=== PATIENT | female | born 1975 | race Caucasian/White ===

== ENCOUNTER 2016-07-30 07:19 | Emergency (ER) | payer OTHER ==
--- NOTE | 2016-07-30 07:22 | PDOC ---
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 Timing/Duration: other (3 days) Severity: mild Modifying Factors: improves with: other (nothing makes it worse or better) Associated Symptoms: reports: chest pain, cough, fever/chills Past History - Past Medical History Allergies/Adverse Reactions: Allergies Allergy/AdvReac Type Severity Reaction Status Date / Time No Known Allergies Allergy Verified 07/30/16 07:21 Home Medications: Ambulatory Orders Ibuprofen 800 mg PO TID #30 tablet 07/30/16 - Psycho/Social/Smoking Cessation Hx Anxiety: No Suicidal Ideation: No Smoking Status: No Smoking History: Never smoked Number of Cigarettes Smoked Daily: 0 Hx Alcohol Use: No Drug/Substance Use Hx: No Substance Use Type: None Review of Systems - Review of Systems Able to Perform ROS?: Yes Constitutional: Yes: See HPI HEENTM: Yes: See HPI Respiratory: Yes: Cough Cardiac (ROS): No: Symptoms Reported ABD/GI: No: Symptoms Reported : No: Symptoms Reported Musculoskeletal: Yes: Other (My whole body aches) Integumentary: No: Symptoms Reported Neurological: No: Symptoms reported Psychiatric: No: Anxiety, Depression Endocrine: No: Symptoms Reported Hematologic/Lymphatic: No: Symptoms Reported All Other Systems: Reviewed and Negative *Physical Exam - Physical Exam General Appearance: Yes: Nourished. No: Apparent Distress HEENT: positive: Normal Voice, TMs Normal, Pharynx Normal, Nasal Congestion. negative: Sinus Tenderness Neck: positive: Trachea midline, Supple. negative: Tender, Lymphadenopathy (R) , Lymphadenopathy (L) Respiratory/Chest: positive: Lungs Clear, Normal Breath Sounds. negative: Respiratory Distress Cardiovascular: positive: Regular Rhythm, Regular Rate. negative: Murmur Gastrointestinal/Abdominal: positive: Normal Bowel Sounds, Flat, Soft. negative : Tender, Organomegaly Rectal Exam: positive: deferred Lymphatic: negative: Adenopathy Musculoskeletal: positive: Normal Inspection Extremity: positive: Normal Inspection. negative: Cyanosis Integumentary: positive: Normal Color, Dry, Warm Neurologic: positive: courtroom deputy II-XII NML intact, Fully Oriented, Alert, Normal Mood/ Affect *DC/Admit/Observation/Transfer Diagnosis at time of Disposition: Viral syndrome - Discharge Dispostion Disposition: HOME Condition at time of disposition: Good Admit: No - Prescriptions Prescriptions: Ibuprofen 800 mg PO TID #30 tablet - Referrals Referrals: Gabriel Escobar MD [Primary Care Provider] - - Patient Instructions Printed Discharge Instructions: DI for Viral Pharyngitis Additional Instructions: Argenis - I am sorry that you are not feeling well right now. Rest, Plenty of fluids, Motrin for fever and bodyaches. Returtn to us if worse or problems. See your doctor next week. Jose Carlos- Dr. Miles Curry
[2016-07-30 07:25] VITALS: BP 118/78; PULSE 82; TEMP 99.8; BMI 21.9
== END 2016-07-30 07:52 | disposition home or self-care (01) ==
LOC: FER 07:19
DX: B34.9 Viral infection, unspecified (principal)
CPT/HCPCS: 99281-25

== ENCOUNTER 2017-12-11 15:40 | Emergency (ER) | payer OTHER ==
--- NOTE | 2017-12-11 17:01 | PDOC ---
Attending Attestation - Resident Resident Name: Gina Adams - ED Attending Attestation I have performed the following: I have examined & evaluated the patient, The case was reviewed & discussed with the resident, I agree w/resident's findings & plan, Exceptions are as noted
[2017-12-11] MEDS ORDERED: SODIUM CHLORIDE 1,000 ML IV STA (17:27)
[2017-12-11] MEDS ORDERED: ONDANSETRON 4 MG/2 ML VIAL IVPB ONE (17:28)
[2017-12-11] MEDS ORDERED: KETOROLAC TROMETHAMINE 30 MG/1 ML VIAL IVPUSH ONE (17:28)
--- NOTE | 2017-12-11 17:34 | PDOC ---
History of Present Illness - General Chief Complaint: Vomiting/Diarrhea Stated Complaint: N/V/D Time Seen by Provider: 12/11/17 17:26 - History of Present Illness Initial Comments: 12/11/17 17:28 Chief complaint: Nausea vomiting abdominal pain History of present illness: Complains of mid abdominal pain and diarrhea since Monday. Today with multiple episodes of vomiting. The emesis is watery without blood. The diarrhea is watery, brown to green in color, and also without blood. The pain is described as crampy, suprapubic in location but radiating to the entire left and right abdomen. Review of systems: No fever/chills, vaginal bleeding or discharge, urinary tract symptoms including dysuria, frequency, urgency, hesitancy, hematuria, URI symptoms, sore throat, cough, chest pain, shortness of breath, visual or focal neurologic symptoms, unsteadiness of gait. Remainder systems reviewed and found to be negative Past medical history: Patient denies any significant illnesses in the past, denies surgery, denies taking any medication on a regular basis. She has had children via normal spontaneous vaginal delivery. She is postmenopausal with her last menstrual period in May of this year. Specifically, she denies cardiac disease, pulmonary disease, abdominal disease of any kind, or prior surgery. 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 No tobacco alcohol or nonprescription drugs Family history: Reviewed and noncontributory Physical exam: Alert oriented well-developed well-nourished moderate distress due to abdominal pain. However, cooperative Afebrile, vital signs normal No pallor or icterus. PERRLA, fundi benign, ENT clear. Mucous membranes mildly dry Neck supple without bruit mass or nodes Lungs clear with full breath sounds bilaterally, no wheezes rales or rhonchi CV S1 and S2 normal without murmur rub or gallop pulses full and symmetric no JVD or edema no bruits Abdomen nondistended. Bowel sounds active. Soft without mass or organomegaly. There is mild to moderate tenderness most localized over the suprapubic area but also present in both lower quadrants. There is minimal epigastric, right upper quadrant, or left upper quadrant tenderness. No CVAT Extremities no CCE Skin clear, no rash, adequate turgor. Impression: Abdominal pain, nausea, vomiting, diarrhea for 3 days. No peritoneal signs. Remainder differential is gastroenteritis versus pelvic/OUTSIDE SALES ENGINEER disease. Mild dehydration. Plan: CBC, chemistries, lipase, and urinalysis. IV hydration and pain control. Further evaluation depending on results. Past History - Past Medical History Allergies/Adverse Reactions: Allergies Allergy/AdvReac Type Severity Reaction Status Date / Time No Known Allergies Allergy Verified 07/30/16 07:21 Home Medications: Ambulatory Orders Loperamide HCl [Imodium -] 2 mg PO Q2H PRN #14 capsule 12/11/17 Ondansetron [Zofran Odt -] 4 - 8 mg SL TID PRN #10 od.tablet 12/11/17 - Suicide/Smoking/Psychosocial Hx Smoking Status: No Smoking History: Never smoked Number of Cigarettes Smoked Daily: 0 Hx Alcohol Use: No Drug/Substance Use Hx: No Substance Use Type: None ED Treatment Course - LABORATORY CBC & Chemistry Diagram: 12/11/17 18:00 12/11/17 18:00 Medical Decision Making - Medical Decision Making 12/11/17 18:53 CBC, chemistries, and lipase without significant abnormalities. Urinalysis with white blood cells but negative for nitrites and leukocyte esterase. Doubt if this is a UTI, but culture is pending and should be checked as directed Most likely viral gastroenteritis that is much improved. Patient is hungry, tolerating by mouth fluids, and pain has completely resolved. *DC/Admit/Observation/Transfer Diagnosis at time of Disposition: Viral gastroenteritis - Discharge Dispostion Disposition: HOME Condition at time of disposition: Improved Decision to Admit order: No - Prescriptions Prescriptions: Loperamide HCl [Imodium -] 2 mg PO Q2H PRN #14 capsule PRN Reason: Diarrhea Ondansetron [Zofran Odt -] 4 - 8 mg SL TID PRN #10 od.tablet PRN Reason: Nausea And/Or Vomiting - Referrals - Patient Instructions Printed Discharge Instructions: DI for Viral Gastroenteritis -- Adult Additional Instructions: Try to drink fluids. No solid food for another 12 hours at least or until symptoms are improved. Check your urine culture in 48 hours to determine whether or not you may have a urinary tract infection - Post Discharge Activity Forms/Work/School Notes: Back to Work
[2017-12-11 17:44] VITALS: BP 101/60; BMI 21.7
[2017-12-11 17:46] VITALS: PULSE 71; TEMP 98.5
[2017-12-11] MEDS ORDERED: KETOROLAC TROMETHAMINE 30 MG/1 ML VIAL ONE (17:48)
[2017-12-11] MEDS ORDERED: ONDANSETRON 4 MG/2 ML VIAL ONE (17:48)
[2017-12-11 17:58] LABS: PH,URINE 5.5 (4.5-8); URINE APPEARANCE Clear; URINE BILIRUBIN Negative (NEGATIVE); URINE COLOR Yellow; URINE GLUCOSE (UA) Negative (NEGATIVE); URINE KETONE Negative (NEGATIVE); URINE LEUK ESTERASE 2+ (NEGATIVE); URINE NITRITE Negative (NEGATIVE); URINE PROTEIN Negative (NEGATIVE); URINE UROBILINOGEN 0.2 (0.2-1.0)
[2017-12-11 18:10] LABS: EPI CELLS FEW /HPF; URINE BACTERIA FEW /hpf (NEGATIVE); URINE WBC 20-30 (0-5)
[2017-12-11 18:17] LABS: BASO % 0.3 % (0-2.0); EOS % 0.5 % (0-4.5); HEMATOCRIT 41.7 % (32.4-45.2); HEMOGLOBIN 12.9 GM/dl (10.7-15.3); LYMPH % 18.4 % (8-40); MCH 26.3 pg (25.7-33.7); MEAN PLT VOLUME 9.1 fl (7.5-11.1); MONO % 11.4 % (3.8-10.2); NEUT % 69.4 % (42.8-82.8); PLATELET COUNT 219 K/MM3 (134-434); RBC 4.91 M/mm3 (3.60-5.2); RDW 13.4 % (11.6-15.6); WHITE BLOOD COUNT 6.7 K/mm3 (4.0-10.8)
[2017-12-11 18:26] LABS: ALBUMIN 3.4 g/dl (3.5-5.0); ALK PHOS 58 U/L (32-92); ANION GAP 7 MMOL/L (8-16); BILIRUBIN,TOTAL 0.6 mg/dl (0.2-1.0); BLOOD UREA NITROGEN 10 mg/dl (7-18); CALCIUM 8.3 mg/dl (8.4-10.2); CHLORIDE 103 mmol/L (98-107); CO2 24 mmol/L (22-28); CREATININE 0.6 mg/dl (0.6-1.3); GLUCOSE,RANDOM 95 mg/dl (74-106); POTASSIUM 3.8 mmol/L (3.5-5.1); SGOT/AST 23 U/L (10-42); SGPT/ALT 17 U/L (10-40); SODIUM 134 mmol/L (136-145); TOT PROT 6.7 g/dl (6.4-8.3)
[2017-12-11 19:25] LABS: LIPASE 96 U/L (73-393)
== END 2017-12-11 19:12 | disposition home or self-care (01) ==
LOC: FER 15:40
PROC: 3E0333Z Introduction of Anti-inflammatory into Peripheral Vein, Percutaneous Approach (ICD-10-PCS; principal; 2017-12-11)
PROC: 3E033GC Introduction of Other Therapeutic Substance into Peripheral Vein, Percutaneous Approach (ICD-10-PCS; 2017-12-11)
PROC: 3E0337Z Introduction of Electrolytic and Water Balance Substance into Peripheral Vein, Percutaneous Approach (ICD-10-PCS; 2017-12-11)
DX: A08.4 Viral intestinal infection, unspecified (principal)
CPT/HCPCS: 36415; 80053; 81003; 81015; 83690; 85025; 87086; 96361; 96374; 96375; 99282-25; J7030

== ENCOUNTER 2018-07-07 10:18 | Emergency (ER) | payer OTHER ==
[2018-07-07 10:30] VITALS: BP 124/79; PULSE 76; TEMP 97.9; BMI 21.7
--- NOTE | 2018-07-07 10:43 | PDOC ---
History of Present Illness - General Chief Complaint: Diarrhea Stated Complaint: DIARRHEA Time Seen by Provider: 07/07/18 10:23 History Source: Patient, Family Exam Limitations: No Limitations - History of Present Illness Initial Comments: 07/07/18 10:38 CC; diarrhea x 5 days with intermittent lower abd cramping HPI: patient went to [place] to visit from 06/28 to 07/03. Started with frequent watery diarrhea since return, now for 5 days, gets up at night and cannot sleep well. Gets intermittent lower abd cramping, goes away after the diarrhea. No blood in stool, just watery and yellow in color. No fever. Currently pain is 0 /10, no pain. Patient states she had the same symptoms in November when she went to [place]. Diarrhea lasted 2 weeks that time. Past History - Past Medical History Allergies/Adverse Reactions: Allergies Allergy/AdvReac Type Severity Reaction Status Date / Time No Known Allergies Allergy Verified 07/07/18 10:23 Home Medications: Ambulatory Orders Ciprofloxacin [Cipro (Restricted To Id)] 500 mg PO Q12H #6 tablet 07/07/18 COPD: No Disorders: Yes (early menopause at 35 years old, on hormone therapy now) - Surgical History Orthopedic Surgery: Yes (knee arthroscopy) - Suicide/Smoking/Psychosocial Hx Smoking Status: No Smoking History: Never smoked Number of Cigarettes Smoked Daily: 0 Hx Alcohol Use: No Drug/Substance Use Hx: No Substance Use Type: None Review of Systems - Review of Systems Constitutional: Yes: Malaise HEENTM: No: Symptoms Reported, See HPI, Eye Pain, Blurred Vision, Tearing, Recent change in vision, Double Vision, Cataracts, Ear Pain, Ocular Prothesis, Ear Discharge, Nose Pain, Nose Congestion, Tinnitus, Nose Bleeding, Hearing Loss , Throat Pain, Throat Swelling, Mouth Pain, Dental Problems, Difficulty Swallowing, Mouth Swelling, Other Respiratory: No: Symptoms reported, See HPI, Cough, Orthopnea, Shortness of Breath, SOB with Exertion, SOB at Rest, Stridor, Wheezing, Productive cough, Hemoptysis, Other Cardiac (ROS): No: Symptoms Reported, See HPI, Chest Pain, Edema, Irregular Heart Rate, Lightheadedness, Palpitations, Syncope, Chest Tightness, Other ABD/GI: Yes: See HPI : No: Symptoms Reported, See HPI, Burning, Dysuria, Discharge, Frequency, Flank Pain, Hematuria, Incontinence, Pain, Urgency, Testicular Mass, Testicular Swelling, Lesions, Testicular Pain, Other Musculoskeletal: No: Symptoms Reported, See HPI, Back Pain, Gout, Joint Pain, Joint Swelling, Muscle Pain, Muscle Weakness, Neck Pain, Joint Stiffness, Other Integumentary: No: Symptoms Reported, See HPI, Bruising, Change in Color, Change in Hair/Nails, Dryness, Erythema, Flushing, Lesions, Lumps, Pallor, Pruritus, Rash, Sweating, Other Neurological: No: Symptoms reported, See HPI, Headache, Numbness, Paresthesia, Pre-Existing Deficit, Seizure, Tingling, Tremors, Weakness, Unsteady Gait, Ataxia, Dizziness, Other Psychiatric: No: Anxiety, Depression, Frequent Crying, Stressors, Sleep Pattern Change, Emotional Problems, Mood Swings, Change in Appetite, Other Endocrine: No: Symptoms Reported, See HPI, Excessive Sweating, Flushing, Intolerance to Cold, Intolerance to Heat, Increased Hunger, Increased Thirst, Increased Urine, Unexplained Weight Gain, Unexplained Weight Loss, Change in Weight, Other Hematologic/Lymphatic: No: Symptoms Reported, See HPI, Anemia, Blood Clots, Easy Bleeding, Easy Bruising, Bleeding Diathesis, Lymph Node Abnormalities, Swollen Glands, Other *Physical Exam - Vital Signs Last Vital Signs Temp Pulse Resp BP Pulse Ox 97.9 F 76 16 124/79 99 07/07/18 10:19 07/07/18 10:19 07/07/18 10:19 07/07/18 10:19 07/07/18 10:19 - Physical Exam Comments: 07/07/18 10:45 VS: nl appears well pain 0/10 perrl conj clear op nl, not dry neck no adenopathy chest clear bs heart rr s1s2 nl no M abd soft, nt, no masses, no g/r, thin, ND back no cvat extrem nl skin no rash neuro nl psych nl Moderate Sedation - Procedure Monitoring Vital Signs: Procedure Monitoring Vital Signs Temperature 97.9 F 07/07/18 10:19 Pulse Rate 76 07/07/18 10:19 Respiratory Rate 16 07/07/18 10:19 Blood Pressure 124/79 07/07/18 10:19 O2 Sat by Pulse Oximetry (%) 99 07/07/18 10:19 ED Treatment Course - LABORATORY CBC & Chemistry Diagram: 07/07/18 10:44 07/07/18 10:44 Medical Decision Making - Medical Decision Making 07/07/18 12:37 typical presentation of travelers diarrhea on return from [place], same symptoms in [place] in the past [place]03 with watery diarrhea no blood, no tenderness, no leukocytosis abd benign wbc noted, appears well, viral vs bacterial discussed options for waiting vs treatment, she wants cipro started one dose in ED, written for 3 day course Laboratory Results - last 24 hr 07/07/18 07/07/18 10:44 10:44 WBC 3.9 L RBC 4.76 Hgb 12.9 Hct 40.2 MCV 84.5 MCH 27.1 MCHC 32.1 RDW 13.1 Plt Count 201 MPV 9.0 Absolute Neuts (auto) 1.8 Neutrophils % 46.5 Lymphocytes % 41.3 H Monocytes % 10.8 H Eosinophils % 0.9 Basophils % 0.5 Sodium 136 Potassium 3.7 Chloride 107 Carbon Dioxide 21 Anion Gap 8 BUN 11 Creatinine 0.7 Creat Clearance w eGFR 90.90 Random Glucose 92 Calcium 8.3 L Total Bilirubin 0.5 AST 35 ALT 33 Alkaline Phosphatase 62 Total Protein 6.9 Albumin 3.5 *DC/Admit/Observation/Transfer Diagnosis at time of Disposition: Diarrhea, travelers' - Discharge Dispostion Disposition: HOME Condition at time of disposition: Stable Decision to Admit order: No - Prescriptions Prescriptions: Ciprofloxacin [Cipro (Restricted To Id)] 500 mg PO Q12H #6 tablet - Referrals Referrals: Gabriel Escobar MD [Primary Care Provider] - - Patient Instructions Printed Discharge Instructions: DI for Diarrhea and Traveler's Diarrhea -- Adult Additional Instructions: evaluation today for diarrhea after return from [place] blood tests normal exam of abdomen is good diagnosis is likely travelers diarrhea take cipro antibiotic twice a day for 3 days drink plenty of fluids, soup, gatorade, maintain good hydration tylenol if needed for abdominal cramps follow up if not better in a few days return to ER for severe or progressive symptoms - Post Discharge Activity
[2018-07-07 10:55] LABS: HEMATOCRIT 40.2 % (32.4-45.2); HEMOGLOBIN 12.9 GM/dl (10.7-15.3); MCH 27.1 pg (25.7-33.7); MCHC 32.1 g/dl (32.0-36.0); MEAN CELL VOLUME 84.5 fl (80-96); PLATELET COUNT 201 K/MM3 (134-434); RBC 4.76 M/mm3 (3.60-5.2); RDW 13.1 % (11.6-15.6); WHITE BLOOD COUNT 3.9 K/mm3 (4.0-10.8)
[2018-07-07 11:15] LABS: ALBUMIN 3.5 g/dl (3.4-5.0); ALK PHOS 62 U/L (45-117); ANION GAP 8 MMOL/L (8-16); BILIRUBIN,TOTAL 0.5 mg/dl (0.2-1); BLOOD UREA NITROGEN 11 mg/dl (7-18); CALCIUM 8.3 mg/dl (8.5-10); CHLORIDE 107 mmol/L (98-107); CO2 21 mmol/L (21-32); CREATININE 0.7 mg/dl (0.55-1.3); GLUCOSE,RANDOM 92 mg/dl (74-106); POTASSIUM 3.7 mmol/L (3.5-5.1); SGOT/AST 35 U/L (15-37); SGPT/ALT 33 U/L (13-61); SODIUM 136 mmol/L (136-145); TOT PROT 6.9 g/dl (6.4-8.2)
[2018-07-07] MEDS ORDERED: CIPROFLOXACIN 500 MG TABLET (RESTRICTED TO ID) PO ONE (12:36)
[2018-07-07] MEDS ORDERED: CIPROFLOXACIN 250 MG TABLET (RESTRICTED TO ID) PO ONE (12:45)
[2018-07-07 15:21] LABS: PLATELET ESTIMATE ADEQUATE
== END 2018-07-07 12:53 | disposition home or self-care (01) ==
LOC: FER 10:18
DX: R19.7 Diarrhea, unspecified (principal); A08.8 Other specified intestinal infections
CPT/HCPCS: 36415; 80053; 85025; 99282-25

== ENCOUNTER 2019-07-07 21:17 | Emergency (ER) | payer OTHER ==
[2019-07-07 21:25] VITALS: BP 151/85; PULSE 75; BMI 21.2
--- NOTE | 2019-07-07 21:58 | PDOC ---
History of Present Illness - General Chief Complaint: Migraine Headache Stated Complaint: MIGRAINE HEADACHE Time Seen by Provider: 07/07/19 21:20 - History of Present Illness Initial Comments: 07/07/19 22:22 This 44-year-old woman with a history of migraine headache presents with 2-day history of frontal and left-sided headache associated with nausea/vomiting. Yesterday, she began to have chills but no fever measured. She denies nasal congestion/rhinorrhea, sore throat, cough, shortness of breath. She has not had any diarrhea. No sick contacts at home. No outside known contacts with CoVid- 19. No recent travel. Patient last took medication for headache (Advil migraine) at 9 AM today patient does not work outside of her home No known allergies No daily medication Non-smoker/no daily alcohol or drug use Past History - Past Medical History Allergies/Adverse Reactions: Allergies Allergy/AdvReac Type Severity Reaction Status Date / Time No Known Allergies Allergy Verified 07/07/19 21:18 Home Medications: Ambulatory Orders NK [No Known Home Medication] 07/07/19 COPD: No Disorders: Yes (early menopause at 35 years old, on hormone therapy now) Other medical history: MIGRAINE - Surgical History Orthopedic Surgery: Yes (knee arthroscopy) - Psycho Social/Smoking Cessation Hx Smoking Status: No Smoking History: Never smoked Have you smoked in the past 12 months: No Number of Cigarettes Smoked Daily: 0 Information on smoking cessation initiated: No Hx Alcohol Use: No Drug/Substance Use Hx: No Substance Use Type: None Review of Systems - Review of Systems Able to Perform ROS?: Yes Comments:: 12 point review of systems is negative except for what is noted in the history of present illness *Physical Exam - Vital Signs Last Vital Signs Temp Pulse Resp BP Pulse Ox 100.1 F H 75 16 151/85 99 07/07/19 21:20 07/07/19 21:20 07/07/19 21:20 07/07/19 21:20 07/07/19 21:20 - Physical Exam GENERAL: Adult female, alert and oriented x3, in mild distress secondary to headache HEAD: Normal with no signs of trauma. EYES: PERRLA, EOMI, sclera anicteric, conjunctiva clear. ENT: Ears normal, nares patent, oropharynx clear without exudates. Dry mucous membranes. NECK: Normal range of motion, supple without lymphadenopathy, JVD, or masses. LUNGS: Breath sounds equal, clear to auscultation bilaterally. No wheezes, and no crackles. HEART:Regular rate and rhythm, normal S1 and S2 without murmur, rub or gallop. ABDOMEN:.normal bowel sounds No guarding,tenderness or rebound.No masses No distention. EXTREMITIES: Normal range of motion, no edema. No clubbing or cyanosis. No erythema, or tenderness. NEUROLOGICAL: Cranial nerves II through XII grossly intact. Normal speech. No focal neurological deficits. MUSCULOSKELETAL: Back non-tender to palpation, no CVA tenderness SKIN: Warm, Dry, normal turgor, no rashes or lesions noted. ED Treatment Course - LABORATORY CBC & Chemistry Diagram: 07/07/19 22:45 07/07/19 22:45 Medical Decision Making - Medical Decision Making 07/08/19 00:02 Patient reported complete relief of her headache and nausea after Reglan 10 mg IVPB and Benadryl 25 mg IVP. Patient received 1 L normal saline IV also. CBC and comprehensive chemistry profile were essentially normal except for slight elevation of transaminases and mild decrease in calcium level. Nasopharyngeal swabs were also sent for rapid influenza test, which were both negative. Patient was discharged with instructions to continue to drink plenty of fluids, monitor her temperature and to use ibuprofen/acetaminophen/naproxen as needed for headache or fever. Self quarantine is highly recommended for 2 weeks. She states she has no family members who are working outside of the home. She should contact her PMD, Dr. Escobar tomorrow regarding today's ER visit. She should return to the ER if she has severe cough, shortness of breath, high fever. Discharge - Discharge Information Problems reviewed: Yes Clinical Impression/Diagnosis: Viral syndrome Headache Qualifiers: Headache type: unspecified Headache chronicity pattern: acute headache Intrac tability: not intractable Qualified Code(s): R51 - Headache Condition: Stable Disposition: HOME - Follow up/Referral Referrals: Gabriel Escobar MD [Primary Care Provider] - Call tomorrow - Patient Discharge Instructions Patient Printed Discharge Instructions: [facility]-Coronavirus Instructions Additional Instructions: Rest; drink plenty of fluids Ibuprofen/acetaminophen/naproxen as needed for fever/headache/body aches Monitor your fever (take temperature twice a day) Call Dr. Chumaceiro tomorrow regarding self quarantine - Post Discharge Activity
[2019-07-07] MEDS ORDERED: SODIUM CHLORIDE 1,000 ML IV STA (22:19)
[2019-07-07] MEDS ORDERED: METOCLOPRAMIDE HCL INJECTION 10 MG/2 ML VIAL IVPB ONE (22:20)
[2019-07-07] MEDS ORDERED: METOCLOPRAMIDE HCL INJECTION 10 MG/2 ML VIAL ONE (22:29)
[2019-07-07 23:03] LABS: BASO % 0.5 % (0-2.0); EOS % 0.5 % (0-4.5); HEMATOCRIT 39.7 % (32.4-45.2); LYMPH % 25.4 % (8-40); MCH 27.4 pg (25.7-33.7); MCHC 32.7 g/dl (32.0-36.0); MEAN CELL VOLUME 83.7 fl (80-96); MONO % 7.8 % (3.8-10.2); NEUT % 65.8 % (42.8-82.8); PLATELET COUNT 165 K/MM3 (134-434); RBC 4.74 M/mm3 (3.60-5.2); RDW 13.3 % (11.6-15.6); WHITE BLOOD COUNT 4.9 K/mm3 (4.0-10.8)
[2019-07-07 23:11] LABS: ALBUMIN 3.6 g/dl (3.4-5.0); BILIRUBIN,TOTAL 0.6 mg/dl (0.2-1); CALCIUM 8.1 mg/dl (8.5-10); CREATININE 0.6 mg/dl (0.55-1.3); TOT PROT 6.8 g/dl (6.4-8.2)
[2019-07-07 23:38] VITALS: TEMP 100
== END 2019-07-07 23:35 | disposition home or self-care (01) ==
LOC: FER 21:17
PROC: 3E033GC Introduction of Other Therapeutic Substance into Peripheral Vein, Percutaneous Approach (ICD-10-PCS; principal; 2019-07-07)
PROC: 3E0337Z Introduction of Electrolytic and Water Balance Substance into Peripheral Vein, Percutaneous Approach (ICD-10-PCS; 2019-07-07)
DX: R51 Headache (principal); B34.9 Viral infection, unspecified
CPT/HCPCS: 36415; 80053; 85025; 87804; 99284-25; J7030

== ENCOUNTER 2024-02-14 04:16 | Day surgery (SDC) | payer OTHER ==
[2024-02-09 16:57] VITALS: BMI 23.9
[~2024-02-14 04:16] MED LIST: ACETAMINOPHEN 325 MG TABLET (FP) PO PRN
[2024-02-14] MEDS ORDERED: PHENYLEPHRINE 2.5% OPTHALMIC DROP 2ML BOTTLE ONE (06:12)
[2024-02-14] MEDS ORDERED: CYCLOPENTOLATE HCL 1% OPHTH SOLN 2 ML BOTTLE ONE (06:12)
[2024-02-14] MEDS ORDERED: KETOROLAC TROMETHAMINE 0.5% EYE DROP 1 DROP DROPS ONE (06:12)
[2024-02-14] MEDS ORDERED: TROPICAMIDE 1% OPHTH SOLN 15 ML BOTTLE ONE (06:13)
[2024-02-14] MEDS ORDERED: OFLOXACIN 0.3% OPHTHALMIC SOLUTION 5 ML BOTTLE ONE (06:13)
[2024-02-14] MEDS: OFLOXACIN 0.3% OPHTHALMIC SOLUTION 5 ML BOTTLE OP SCH (06:35)
[2024-02-14] MEDS: PHENYLEPHRINE 2.5% OPHTH SOLN 15 ML BOTTLE OP SCH (06:36)
[2024-02-14] MEDS: TROPICAMIDE 1% OPHTH SOLN 15 ML BOTTLE OP SCH (06:37)
[2024-02-14] MEDS: KETOROLAC TROMETHAMINE 0.5% EYE DROP 1 DROP DROPS OP SCH (06:37)
[2024-02-14] MEDS: CYCLOPENTOLATE HCL 1% OPHTH SOLN 2 ML BOTTLE OP SCH (06:38)
[2024-02-14] MEDS ORDERED: BUPIVACAINE HCL/PF 0.75% 10 ML VIAL ONE (07:15)
[2024-02-14] MEDS ORDERED: LIDOCAINE HCL/PF 2% SDV 5ML VIAL ONE (07:15)
[2024-02-14] MEDS ORDERED: BSS (NA/CA/MG/K) BALANCED SALT SOLUTION OPHTH SOLN 15 ML BOTTLE ONE (07:16)
[2024-02-14] MEDS ORDERED: POVIDONE-IODINE 5% OPHTHALMIC PREP 30 ML SOLUTION ONE (07:16)
[2024-02-14] MEDS ORDERED: EPINEPHrine/PF 1 MG/1 ML (1:1,000) AMPULE ONE (07:16)
[2024-02-14] MEDS ORDERED: LIDOCAINE HCL/PF 1% SDV 5ML VIAL ONE (07:16)
[2024-02-14] MEDS ORDERED: TETRACAINE 0.5% OPHTH SOLN 2 ML BOTTLE ONE (07:21)
[2024-02-14] MEDS ORDERED: VANCOMYCIN 500 MG VIAL (RESTRICTED TO ID ONLY) ONE (07:22)
[2024-02-14] MEDS ORDERED: ACETYLCHOLINE 1:100 INTRA-OCUL 20 MG/2 ML KIT ONE (07:22)
[2024-02-14] MEDS ORDERED: PROPOFOL 20 ML ONE (08:02)
[2024-02-14] MEDS: BUPIVACAINE HCL/PF 0.75% 10 ML VIAL NR ONE ×2 (08:06)
[2024-02-14] MEDS: LIDOCAINE HCL/PF 2% SDV 5ML VIAL INF ONE ×2 (08:06)
[2024-02-14] MEDS: POVIDONE-IODINE 5% OPHTHALMIC PREP 30 ML SOLUTION OS ONE ×2 (08:08)
[2024-02-14] MEDS: LIDOCAINE HCL 1% PRESERVATIVE FREE - 30ML VIAL IO ONE ×2 (08:11)
[2024-02-14] MEDS: BSS (NA/CA/MG/K) BALANCED SALT SOLUTION OPHTH SOLN 15 ML BOTTLE IO ONE ×2 (08:17)
[2024-02-14] MEDS: CHONDROITIN SU A/HYALUR SOD 1 KIT IO ONE ×2 (08:20)
[2024-02-14] MEDS: EPINEPHrine/PF 1 MG/1 ML (1:1,000) AMPULE SQ ONE ×2 (08:34)
[2024-02-14] MEDS: VANCOMYCIN 500 MG VIAL (RESTRICTED TO ID ONLY) IVPB ONE ×2 (08:36)
[2024-02-14 09:33] VITALS: RESP 18
[2024-02-14 09:57] VITALS: BP 124/76; PULSE 55; TEMP 97.1
== END 2024-02-14 09:37 | disposition home or self-care (01) ==
LOC: JASU-SURG 04:16
PROVIDERS: ATTEND Ophthalmology
PROC: 08RK3JZ Replacement of Left Lens with Synthetic Substitute, Percutaneous Approach (ICD-10-PCS; principal; 2024-02-14 08:00)
DX: H26.9 Unspecified cataract (principal)
CPT/HCPCS: V2632